=== PATIENT | male | born 1960 | race Caucasian/White ===

== ENCOUNTER 2024-10-26 13:24 | Emergency (ER) | payer MEDICARE ==
[2024-10-26] MEDS: Nitroglycerin 0.4 MG Tab.SL SL ONE (13:41)
[2024-10-26 13:44] LABS: BASOPHILS ABSOLUTE AUTO 0.04 10^3/uL (0.00-0.50); BASOPHILS PERCENT AUTO 0.5 % (0-1); EOSINOPHILS ABSOLUTE AUTO 0.19 10^3/uL (0.00-1.50); EOSINOPHILS PERCENT AUTO 2.3 % (0-6); HEMOGLOBIN 15.1 g/dL (14.0-18.0); IMMATURE GRAN ABSOLUTE AUTO 0.01 10^3/uL (0.00-0.49); IMMATURE GRAN PERCENT AUTO 0.1 % (0.0-4.9); LYMPHOCYTES ABSOLUTE AUTO 0.59 10^3/uL (0.60-5.00); LYMPHOCYTES PERCENT AUTO 7.2 % (24-44); MEAN CORPUSCULAR HGB CONC 33.6 g/dL (32.0-36.0); MEAN CORPUSCULAR VOLUME 86.4 fL (83.0-97.0); MONOCYTES ABSOLUTE AUTO 0.67 10^3/uL (0.00-1.50); MONOCYTES PERCENT AUTO 8.2 % (0-10); NEUTROPHILS PERCENT AUTO 81.7 % (41-71); PLATELET COUNT,PLT 153 10^3/uL (150-400); RED BLOOD CELL COUNT 5.21 x10^6/uL (4.50-6.00); WHITE BLOOD CELL COUNT,WBC 8.2 10^3/uL (4.0-11.0)
[2024-10-26 14:00] LABS: ALANINE AMINOTRANSFERASE,ALT 22 U/L (12-78); ALBUMIN 3.9 g/dL (3.4-5.0); ALKALINE PHOSPHATASE 96 U/L (46-116); ASPARTATE AMNIOTRANSFERASE,AST 21 U/L (15-37); BLOOD UREA NITROGEN,BUN 17 mg/dL (7-18); CALCIUM 9.6 mg/dL (8.4-10.1); CARBON DIOXIDE,CO2 28 mmol/L (21-32); CHLORIDE,CL 104 mEq/L (98-106); CREATININE 1.3 mg/dL (0.7-1.3); GLUCOSE RANDOM 81 mg/dL (75-99); POTASSIUM,K 4.1 mEq/L (3.5-5.0); PROTEIN TOTAL,TP 7.7 g/dL (6.4-8.2); SODIUM,NA 142 mEq/L (136-145)
[2024-10-26 14:02] LABS: C-REACTIVE PROTEIN < 0.50 mg/dL (<=0.50); ESTIMATED GFR 61 mL/min (>=60)
[2024-10-26 14:17] LABS: INR 0.99 (0.92-1.18); PROTHROMBIN TIME 10.3 SEC (9.3-11.3); PTT,PARTIAL THROMBOPLSTIN TIME 23.6 SEC (20.0-30.0)
[2024-10-26] MEDS: Acetaminophen 325 MG Tab PO ONE (14:52)
[2024-10-26 18:05] VITALS: BP 164/53; PULSE 80
== END 2024-10-26 17:58 | disposition home or self-care (01) ==
LOC: CC.ED 13:30
DX: R07.89 Other chest pain (principal); I25.10 Atherosclerotic heart disease of native coronary artery without angina pectoris; E78.00 Pure hypercholesterolemia, unspecified; K21.9 Gastro-esophageal reflux disease without esophagitis; Z79.899 Other long term (current) drug therapy; Z90.49 Acquired absence of other specified parts of digestive tract
CPT/HCPCS: 36415; 71046; 80053; 84484; 85025; 85610; 85730; 86140; 93005; 99285; A9270-GY